=== PATIENT | male | born 1980 | race Caucasian/White ===

== ENCOUNTER 2016-10-05 21:26 | Emergency (ER) | payer BC ==
[2016-10-05 21:33] VITALS: BP 138/81; PULSE 97; RESP 16; TEMP 97.2
[2016-10-05] MEDS ORDERED: SULFAMETHOX-TMP 800-160MG 1 EACH TAB PO STA (21:39)
[2016-10-05] MEDS ORDERED: IBUPROFEN 600 MG TAB PO STA (21:59)
[2016-10-05] MEDS ORDERED: HYDROcodone/APAP 5-325MG 1 EACH TAB PO STA (21:59)
--- NOTE | 2016-10-05 22:01 | ED ---
Skin/Abscess/FB HPI - General Chief complaint: Skin/Abscess/Foreign Body Stated complaint: Arm Pain Time Seen by Provider: 10/05/16 21:34 Source: patient, RN notes reviewed Mode of arrival: ambulatory Limitations: no limitations - History of Present Illness Initial comments: Patient is a 35-year-old male presents to the emergency room for evaluation of left forearm abscess. Patient states a few days ago, he thought he noticed a small spider or insect bite over his forearm. Patient states over the past few days it has significantly increased in size. Patient states he's been applying warm compresses with no relief of symptoms. Patient states he has had lesions like this before that has improved with warm compresses. Patient denies history of known abscesses. Patient denies history of MRSA. Patient denies IV drug use. Patient denies numbness or tingling in his fingers. Patient denies fevers or chills. - Related Data Previous Rx's Medication Instructions Recorded HYDROcodone/APAP 5-325MG [[place] 1 tab PO Q6HR PRN #12 tab 10/05/16 5-325] Ibuprofen [Motrin] 600 mg PO Q6HR PRN #20 tab 10/05/16 Sulfamethox-Tmp 800-160Mg [Bactrim 2 each PO Q12HR #56 tab 10/05/16 Ds] Allergies Allergy/AdvReac Type Severity Reaction Status Date / Time No Known Allergies Allergy Verified 10/05/16 21:33 Review of Systems ROS Statement: Those systems with pertinent positive or pertinent negative responses have been documented in the HPI. ROS Other: All systems not noted in ROS Statement are negative. Past Medical History Past Medical History: No Reported History History of Any Multi-Drug Resistant Organisms: MRSA Date of last positivie culture/infection: 09/09/2013 MDRO Source:: Right Thigh & Groin Past Surgical History: No Surgical Hx Reported Past Psychological History: No Psychological Hx Reported Smoking Status: Never smoker Past Alcohol Use History: Occasional Past Drug Use History: None Reported General Exam - General Exam Comments Initial Comments: Sitting in exam room, no acute distress. Limitations: no limitations General appearance: alert, in no apparent distress Head exam: Present: atraumatic, normocephalic, normal inspection Eye exam: Present: normal appearance ENT exam: Present: normal exam Neck exam: Present: normal inspection Respiratory exam: Present: normal lung sounds bilaterally. Absent: respiratory distress Cardiovascular Exam: Present: regular rate, normal rhythm, normal heart sounds Left Forearm Wrist exam: Present: other (abscess over dorsal mid-distal foremarm with surrounding erythema) Hand Wrist exam: Present: full ROM Vascular: Present: normal capillary refill (Capillary refill less than 2 seconds ), radial pulse (2+), ulnar pulse (2+) Back exam: Present: normal inspection Neurological exam: Present: alert, oriented X3, CN II-XII intact, normal gait Psychiatric exam: Present: normal affect, normal mood Skin exam: Present: warm, dry. Absent: rash Course Vital Signs 10/05/16 21:27 Temperature 97.2 F L Pulse Rate 97 Respiratory 16 Rate Blood Pressure 138/81 O2 Sat by Pulse 98 Oximetry Procedures - Incision & Drainage Consent Obtained: verbal consent Site: other (left forearm) Size (cm): 2 Anesthetic Used: lidocaine 1% Amount (mLs): 5 I&D Cleaning Method: Betadine Scalpel Used: #11 I&D Drainage Obtained: Pus, Blood Patient Tolerated Procedure: well, no complications Medical Decision Making - Medical Decision Making Patient is a 35-year-old male presents to the emergency room for evaluation left forearm abscess. Abscess incised and drained. Patient placed on Bactrim. Advised patient to have area reevaluated by his primary care provider. Discussed with patient the possibility of IV antibiotics if symptoms worsen. Patient states he understands everything that was discussed with him. Return parameters discussed. Disposition Clinical Impression: Abscess of left forearm Disposition: HOME SELF-CARE Condition: Good Instructions: Abscess Incision and Drainage (ED), Abscess (ED) Additional Instructions: Take 2 tablets of Bactrim every 12 hours. Warm compresses. Tylenol or Motrin as needed for pain. [place] as needed for severe pain. Please follow up with primary care provider in 24-48 hours for reevaluation. If any new symptom arises or symptoms worsen, return to ER as soon as possible. Prescriptions: HYDROcodone/APAP 5-325MG [[place] 5-325] 1 tab PO Q6HR PRN #12 tab PRN Reason: Pain Ibuprofen [Motrin] 600 mg PO Q6HR PRN #20 tab PRN Reason: Pain Sulfamethox-Tmp 800-160Mg [Bactrim Ds] 2 each PO Q12HR #56 tab Referrals: Jez Mcgill MD [Primary Care Provider] - 1-2 days Time of Disposition: 21:58
[2016-10-05] MEDS ORDERED: SULFAMETH-TMP DS STARTER PACK 2 TAB BTL PO STA (22:07)
== END 2016-10-05 22:30 | disposition home or self-care (01) ==
LOC: EC 21:26
DX: L02.414 Cutaneous abscess of left upper limb (principal); Z86.14 Personal history of Methicillin resistant Staphylococcus aureus infection
CPT/HCPCS: 10060; 99283

== ENCOUNTER 2020-01-23 12:56 | Emergency (ER) | payer BC ==
[2020-01-23 13:03] VITALS: PULSE 66; TEMP 97.7
[2020-01-23] MEDS ORDERED: SODIUM CHLORIDE 0.9% 1,000 ML IV STA (13:26)
[2020-01-23] MEDS ORDERED: KETOROLAC 15 MG/ML 1 ML VIAL IVP STA (13:26)
--- NOTE | 2020-01-23 13:37 | ED ---
Abdominal Pain HPI - General Chief Complaint: Abdominal Pain Stated Complaint: lt sided abd pain Time Seen by Provider: 01/23/20 13:15 Source: patient Mode of arrival: ambulatory Limitations: no limitations - History of Present Illness Initial Comments: Patient is a 3-year-old male presenting to emergency Department with a chief complaint of abdominal pain. Patient reports he developed left-sided abdominal pain several days ago with gradual increase in severity. Patient reports the pain is sharp and colicky nature. Patient states he has been taking [id number] analgesics with minimal improvement in symptoms. He denies previous history of kidney stones. Denies hematuria, hematochezia or melena. Denies any nausea or vomiting. Denies dysuria, increased urgency or frequency. Denies previous abdominal surgeries. - Related Data Previous Rx's Medication Instructions Recorded HYDROcodone/APAP 5-325MG [[place] 1 tab PO Q6HR PRN #12 tab 10/05/16 5-325] RX: Ibuprofen [Motrin] 600 mg PO Q6HR PRN #20 tab 10/05/16 Sulfamethox-Tmp 800-160Mg [Bactrim 2 each PO Q12HR #56 tab 10/05/16 Ds] Ondansetron Odt [Zofran Odt] 4 mg PO Q8HR PRN #20 tab 01/23/20 Tamsulosin [Flomax] 0.4 mg PO DAILY #7 cap 01/23/20 Allergies Allergy/AdvReac Type Severity Reaction Status Date / Time Sulfa (Sulfonamide Allergy Anaphylaxis Verified 01/23/20 13:03 Antibiotics) Review of Systems ROS Statement: Those systems with pertinent positive or pertinent negative responses have been documented in the HPI. ROS Other: All systems not noted in ROS Statement are negative. Past Medical History Past Medical History: No Reported History History of Any Multi-Drug Resistant Organisms: MRSA Date of last positivie culture/infection: 09/09/2013 MDRO Source:: Right Thigh & Groin Past Surgical History: No Surgical Hx Reported Past Psychological History: No Psychological Hx Reported Past Alcohol Use History: Occasional Past Drug Use History: None Reported General Exam Limitations: no limitations General appearance: alert, in no apparent distress Head exam: Present: atraumatic, normocephalic, normal inspection Eye exam: Present: normal appearance, PERRL, EOMI Pupils: Present: normal accommodation ENT exam: Present: normal exam, normal oropharynx, mucous membranes moist Neck exam: Present: normal inspection, full ROM. Absent: tenderness Respiratory exam: Present: normal lung sounds bilaterally. Absent: respiratory distress, wheezes, rales Cardiovascular Exam: Present: regular rate, normal rhythm, normal heart sounds GI/Abdominal exam: Present: soft. Absent: distended, tenderness, guarding Extremities exam: Present: normal inspection, full ROM, normal capillary refill Back exam: Present: normal inspection, full ROM, CVA tenderness (L). Absent: tenderness, CVA tenderness (R) Neurological exam: Present: alert, oriented X3, CN II-XII intact, normal gait Psychiatric exam: Present: normal affect, normal mood Skin exam: Present: warm, dry, intact, normal color Course Vital Signs 01/23/20 01/23/20 12:59 14:59 Temperature 97.7 F Pulse Rate 66 66 Respiratory 80 H 18 Rate Blood Pressure 155/84 120/78 O2 Sat by Pulse 100 100 Oximetry Medical Decision Making - Medical Decision Making patient is a 39-year-old male presenting to emergency Department with chief complaint of abdominal pain. On physical examination patient has left CVA tenderness and left flank pain. CBC CMP is unremarkable. UA reveals a 7 mm obstructing stone in the left UVJ causing left-sided hydronephrosis. Patient given analgesia, and IV fluids in the ED. He will be discharged with Flomax, Zofran and Tylenol 3 starter pack. On reevaluation, patient reports improvement of symptoms and states the pain is manageable now. He was advised to follow-up with urologist. Strict return parameters were thoroughly discussed the patient was understanding and agreeable. Case discussed with physician. - Lab Data Result diagrams: 01/23/20 13:40 01/23/20 13:40 Lab Results 01/23/20 01/23/20 01/23/20 Range/Units 13:40 13:40 13:40 WBC 10.1 (3.8-10.6) k/uL RBC 5.23 (4.30-5.90) m/uL Hgb 15.4 (13.0-17.5) gm/dL Hct 46.4 (39.0-53.0) % MCV 88.7 (80.0-100.0) fL MCH 29.4 (25.0-35.0) pg MCHC 33.1 (31.0-37.0) g/dL RDW 13.0 (11.5-15.5) % Plt Count 273 (150-450) k/uL Neutrophils % 77 % Lymphocytes % 16 % Monocytes % 5 % Eosinophils % 1 % Basophils % 1 % Neutrophils # 7.8 H (1.3-7.7) k/uL Lymphocytes # 1.6 (1.0-4.8) k/uL Monocytes # 0.5 (0-1.0) k/uL Eosinophils # 0.1 (0-0.7) k/uL Basophils # 0.1 (0-0.2) k/uL Sodium 138 (137-145) mmol/L Potassium 4.1 (3.5-5.1) mmol/L Chloride 104 (98-107) mmol/L Carbon Dioxide 26 (22-30) mmol/L Anion Gap 8 mmol/L BUN 18 (9-20) mg/dL Creatinine 1.07 (0.66-1.25) mg/dL Est GFR (CKD-EPI)AfAm >90 (>60 ml/min/1.73 sqM) Est GFR (CKD-EPI)NonAf 87 (>60 ml/min/1.73 sqM) Glucose 114 H (74-99) mg/dL Calcium 9.9 (8.4-10.2) mg/dL Total Bilirubin 1.3 (0.2-1.3) mg/dL AST 42 (17-59) U/L ALT 33 (4-49) U/L Alkaline Phosphatase 73 (38-126) U/L Total Protein 7.8 (6.3-8.2) g/dL Albumin 4.7 (3.5-5.0) g/dL Lipase 224 (23-300) U/L Urine Color Yellow Urine Appearance Cloudy (Clear) Urine pH 6.0 (5.0-8.0) Ur Specific [place] 1.025 (1.001-1.035) Urine Protein Trace H (Negative) Urine Glucose (UA) Negative (Negative) Urine Ketones 2+ H (Negative) Urine Blood Large H (Negative) Urine Nitrite Negative (Negative) Urine Bilirubin Negative (Negative) Urine Urobilinogen 2.0 (<2.0) mg/dL Ur Leukocyte Esterase Small H (Negative) Urine RBC 104 H (0-5) /hpf Urine WBC 9 H (0-5) /hpf Ur Squamous Epith Cells <1 (0-4) /hpf Hyaline Casts 1 (0-2) /lpf Urine Mucus Rare H (None) /hpf Disposition Clinical Impression: Hydronephrosis concurrent with and due to calculi of kidney and ureter, Renal stone Disposition: HOME SELF-CARE Condition: Stable Instructions (If sedation given, give patient instructions): Kidney Stones (ED) Additional Instructions: Take prescribed medication as directed. Follow-up with urologist. Drink plenty of fluids. Return to emergency department if symptoms worsen. Prescriptions: Tamsulosin [Flomax] 0.4 mg PO DAILY #7 cap Ondansetron Odt [Zofran Odt] 4 mg PO Q8HR PRN #20 tab PRN Reason: Nausea Is patient prescribed a controlled substance at d/c from ED?: No Referrals: None,Stated [Primary Care Provider] - 1-2 days Jesus Lebron MD [STAFF PHYSICIAN] - 1-2 days Time of Disposition: 14:40
[2020-01-23 14:00] LABS: Basophils # (A) 0.1 k/uL (0-0.2); Basophils % (A) 1 %; Eosinophils # (A) 0.1 k/uL (0-0.7); Eosinophils % (A) 1 %; HCT 46.4 % (39.0-53.0); HGB 15.4 gm/dL (13.0-17.5); Lymphocytes # (A) 1.6 k/uL (1.0-4.8); Lymphocytes % (A) 16 %; MCH 29.4 pg (25.0-35.0); MCHC 33.1 g/dL (31.0-37.0); MCV 88.7 fL (80.0-100.0); Mean Platelet Volume 6.7; Monocytes # (A) 0.5 k/uL (0-1.0); Monocytes % (A) 5 %; Neutrophils # (A) 7.8 k/uL (1.3-7.7); Neutrophils % (A) 77 %; Platelet Count 273 k/uL (150-450); RBC 5.23 m/uL (4.30-5.90); WBC 10.1 k/uL (3.8-10.6)
[2020-01-23 14:07] LABS: Appearance,Urine Cloudy (Clear); Bilirubin,Urine Negative (Negative); Blood,Urine Large (Negative); Color,Urine Yellow; Glucose,Urine (UA) Negative (Negative); Hyaline Casts,Urine 1 /lpf (0-2); Ketones,Urine 2+ (Negative); Leukocyte Esterase,Urine Small (Negative); Mucus,Urine Rare /hpf; Nitrite,Urine Negative (Negative); Protein,Urine Trace (Negative); RBC,Urine 104 /hpf (0-5); Specific Gravity,Urine 1.025 (1.001-1.035); Squamous Epithelial Cell,Urine <1 /hpf (0-4); WBC,Urine 9 /hpf (0-5)
[2020-01-23 14:08] LABS: ALT 33 U/L (4-49); AST 42 U/L (17-59); African American GFR (CKD) >90 (>60 ml/min/1.73 sqM); Albumin 4.7 g/dL (3.5-5.0); Alkaline Phosphatase 73 U/L (38-126); Anion Gap 8 mmol/L; Blood Urea Nitrogen 18 mg/dL (9-20); Calcium 9.9 mg/dL (8.4-10.2); Carbon Dioxide 26 mmol/L (22-30); Chloride 104 mmol/L (98-107); Glucose 114 mg/dL (74-99); Non-African American GFR(CKD) 87 (>60 ml/min/1.73 sqM); Potassium 4.1 mmol/L (3.5-5.1); Sodium 138 mmol/L (137-145); Total Bilirubin 1.3 mg/dL (0.2-1.3); Total Protein 7.8 g/dL (6.3-8.2)
--- NOTE | 2020-01-23 14:33 | CT ---
EXAMINATION TYPE: CT abdomen pelvis w con DATE OF EXAM: 01/23/2020 COMPARISON: None HISTORY: Left sided flank pain with hematuria. CT DLP: 1223.7 mGycm Automated exposure control for dose reduction was used. CONTRAST: Performed with IV Contrast, patient injected with 100 mL of Isovue 300. Lung bases are clear. There is no pleural effusion. Heart size is normal. There is no pericardial eff usion. Liver spleen pancreas stomach gallbladder appear normal. Bile ducts are not dilated. There is no adrenal mass. Kidneys have normal size. There is delayed left side pyelogram. There is le ft-sided hydronephrosis with 7 mm calculus at the ureteropelvic junction. There is 2 cm cortical cyst anterior right kidney. There is 8mm calculus lower pole right kidney. There is 3 mm calculus lower p ole right kidney. There is 1 mm calculus upper pole left kidney. There is no retroperitoneal adenopathy. Ureters are not dilated. Appendix is posterior and appears no rmal. There is no evidence of a pelvic mass. Bladder distends smoothly. There are a few phleboliths i n the pelvis. There is small left side prostate calcifications. There is no mesenteric edema. There is no ascites or free air. There is no bowel obstruction. Lumbar vertebra have normal alignment. Disc spaces are fairly normal. Posterior elements are intact. Bony pelvis is intact. The hip joints are intact. IMPRESSION: Obstructing calculus at the left ureteropelvic Junction with left-sided hydronephrosis. Multiple bila teral renal calculi.
[2020-01-23] MEDS ORDERED: ACET/COD 300 MG/30 MG STARTER PACK 6 TAB BTL PO STA (14:36)
[2020-01-23] MEDS ORDERED: TAMSULOSIN 0.4 MG CAP.ER.24H PO STA (14:36)
[2020-01-23 15:03] VITALS: BP 120/78; RESP 18
== END 2020-01-23 14:59 | disposition home or self-care (01) ==
LOC: EC 12:56
DX: N13.2 Hydronephrosis with renal and ureteral calculous obstruction (principal); Z88.2 Allergy status to sulfonamides; Z86.14 Personal history of Methicillin resistant Staphylococcus aureus infection
CPT/HCPCS: 36415; 80053; 83690; 85025; 81001; 74177; 99284; 96374; 96361; J1885; Q9967

== ENCOUNTER → 2020-02-14 | Outpatient (CLI) | payer BC ==
--- NOTE | 2020-02-14 13:54 | XR ---
EXAMINATION TYPE: XR KUB DATE OF EXAM: 02/14/2020 HISTORY: Pain Comparison: None.Single KUB is submitted for interpretation. Findings: Right renal calculi: 6.25mm calculus lower pole right kidney Right ureteral calculi: None Visualized. Left renal calculi: None Visualized. Left ureteral calculi: None Visualized. Pelvic calcifications: None Visualized. Bowel gas pattern is unremarkable. No free air. No mass effects. IMPRESSION: 1. 6.25mm calculus lower pole right kidney
== END | disposition home or self-care (01) ==
LOC: RADXRMAIN 13:30
PROVIDERS: ATTEND Urology
DX: N20.0 Calculus of kidney (principal)
CPT/HCPCS: 74018

== ENCOUNTER 2020-03-16 08:16 | Emergency (ER) | payer BC ==
[2020-03-16 08:21] VITALS: RESP 18; TEMP 98.7
[2020-03-16] MEDS ORDERED: KETOROLAC 15 MG/ML 1 ML VIAL IVP STA (08:37)
[2020-03-16] MEDS ORDERED: SODIUM CHLORIDE 0.9% 500 ML 500 ML IV ONE (08:37)
[2020-03-16] MEDS ORDERED: SODIUM CHLORIDE 0.9% 1,000 ML IV SCH (08:45)
--- NOTE | 2020-03-16 08:46 | ED ---
Male Urogenital HPI - General Chief complaint: Urogenital Stated complaint: Kidney stone Time Seen by Provider: 03/16/20 08:22 Source: patient Mode of arrival: ambulatory Limitations: no limitations - History of Present Illness Initial comments: 39yo male with history of kidney stone presenting for right sided flank pain. patient states that he was in the ER a month ago or so for left flank pain and diagnosed with both right sided and left sided kidney stones. he states the left passed and he received lithotripsy friday for the right side, patient states he was no symptomatic. patietn states that now he is in severe pain in the right side, he thinks there is a large chunk stuck. He states he has had nause and vomiting associated with the pain. pt states that the pain began Friday and has continued to get worse. Denies fevers, chills. Admits to cold sweats prior to vomiting. Patient denies abdominal pain. Patient denies blood in vomiting. rem aining ROS (-). patient appears nontoxic but uncomfortable on arrival. - Related Data Previous Rx's Medication Instructions Recorded HYDROcodone/APAP 5-325MG [[place] 1 tab PO Q6HR PRN 3 Days #12 tab 03/16/20 5-325] Ketorolac [Toradol] 10 mg PO Q8HR PRN 3 Days #15 tab 03/16/20 Ondansetron Odt [Zofran Odt] 4 mg PO Q8HR PRN 7 Days #21 tab 03/16/20 Tamsulosin [Flomax] 0.4 mg PO DAILY 5 Days #5 cap 03/16/20 Allergies Allergy/AdvReac Type Severity Reaction Status Date / Time Sulfa (Sulfonamide Allergy Anaphylaxis Verified 03/16/20 08:59 Antibiotics) Review of Systems ROS Statement: Those systems with pertinent positive or pertinent negative responses have been documented in the HPI. ROS Other: All systems not noted in ROS Statement are negative. Past Medical History Past Medical History: No Reported History Additional Past Medical History / Comment(s): Kidney stone History of Any Multi-Drug Resistant Organisms: MRSA Date of last positivie culture/infection: 09/09/2013 MDRO Source:: Right Thigh & Groin Past Surgical History: No Surgical Hx Reported Past Psychological History: No Psychological Hx Reported Smoking Status: Never smoker Past Alcohol Use History: None Reported Past Drug Use History: None Reported General Exam - General Exam Comments Initial Comments: General: The patient is awake and alert, in no distress Eye: +3 mm pupils are equal, round and reactive to light, extra-ocular movements are intact. No nystagmus. There is normal conjunctiva bilaterally. No signs of icterus. Ears, nose, mouth and throat: There are moist mucous membranes and no oral lesions. Neck: The neck is supple, there is no tenderness or JVD. Cardiovascular: There is a regular rate and rhythm. No murmur, rub or gallop is appreciated. Respiratory: Lungs are clear to auscultation, respirations are non-labored, breath sounds are equal. No wheezes, stridor, rales, or rhonchi. Gastrointestinal: Soft, non-distended, non-tender abdomen without masses or organomegaly noted. There is no rebound or guarding present. Musculoskeletal: Normal ROM, no tenderness. Strength 5/5. Sensation intact. Radial pulses equal bilaterally 2+. Neurological: A&O x 3. CN II-XII intact grossly, There are no obvious motor or sensory deficits. Coordination appears grossly intact. Speech is normal. Skin: Skin is warm and dry and no rashes or lesions are noted. Psychiatric: Cooperative, appropriate mood & affect, normal judgment. Limitations: no limitations Course Vital Signs 03/16/20 08:17 Temperature 98.7 F Pulse Rate 81 Respiratory 18 Rate Blood Pressure 154/95 O2 Sat by Pulse 97 Oximetry Medical Decision Making - Medical Decision Making Lab increased creatinine, CT revealed hydronephrosis and 2 small stones at 4 mm that appear to be passing. Urology consulted. recommended discharge with urology f/u, toradol and norco prescription. patient agreeable to care plan and discharge. - Lab Data Result diagrams: 03/16/20 08:43 03/16/20 08:43 Lab Results 03/16/20 03/16/20 03/16/20 Range/Units 08:43 08:43 08:43 WBC 17.6 H (3.8-10.6) k/uL RBC 5.14 (4.30-5.90) m/uL Hgb 15.3 (13.0-17.5) gm/dL Hct 43.3 (39.0-53.0) % MCV 84.3 (80.0-100.0) fL MCH 29.7 (25.0-35.0) pg MCHC 35.3 (31.0-37.0) g/dL RDW 13.1 (11.5-15.5) % Plt Count 333 (150-450) k/uL MPV 6.8 Neutrophils % 86 % Lymphocytes % 7 % Monocytes % 6 % Eosinophils % 0 % Basophils % 0 % Neutrophils # 15.2 H (1.3-7.7) k/uL Lymphocytes # 1.2 (1.0-4.8) k/uL Monocytes # 1.0 (0-1.0) k/uL Eosinophils # 0.0 (0-0.7) k/uL Basophils # 0.1 (0-0.2) k/uL Sodium 135 L (137-145) mmol/L Potassium 4.3 (3.5-5.1) mmol/L Chloride 105 (98-107) mmol/L Carbon Dioxide 22 (22-30) mmol/L Anion Gap 8 mmol/L BUN 19 (9-20) mg/dL Creatinine 1.59 H (0.66-1.25) mg/dL Est GFR (CKD-EPI)AfAm 62 (>60 ml/min/1.73 sqM) Est GFR (CKD-EPI)NonAf 54 (>60 ml/min/1.73 sqM) Glucose 137 H (74-99) mg/dL Calcium 10.2 (8.4-10.2) mg/dL Total Bilirubin 1.2 (0.2-1.3) mg/dL AST 35 (17-59) U/L ALT 23 (4-49) U/L Alkaline Phosphatase 67 (38-126) U/L Total Protein 7.9 (6.3-8.2) g/dL Albumin 4.6 (3.5-5.0) g/dL Urine Color Yellow Urine Appearance Clear (Clear) Urine pH 6.0 (5.0-8.0) Ur Specific [place] 1.028 (1.001-1.035) Urine Protein 1+ H (Negative) Urine Glucose (UA) Negative (Negative) Urine Ketones 2+ H (Negative) Urine Blood Moderate H (Negative) Urine Nitrite Negative (Negative) Urine Bilirubin Negative (Negative) Urine Urobilinogen <2.0 (<2.0) mg/dL Ur Leukocyte Esterase Negative (Negative) Urine RBC 8 H (0-5) /hpf Urine WBC 2 (0-5) /hpf Ur Squamous Epith Cells <1 (0-4) /hpf Urine Mucus Rare H (None) /hpf Disposition Clinical Impression: Kidney stones, Right flank pain Disposition: HOME SELF-CARE Condition: Good Instructions (If sedation given, give patient instructions): Kidney Stones (ED) Additional Instructions: Please use medication as discussed. Please follow-up with urology in next 2 days. Please return to emergency room if the symptoms increase or worsen or for any other concerns. Is patient prescribed a controlled substance at d/c from ED?: No Referrals: None,Stated [Primary Care Provider] - 1-2 days Time of Disposition: 10:08
[2020-03-16 09:04] LABS: Basophils # (A) 0.1 k/uL (0-0.2); Basophils % (A) 0 %; Eosinophils % (A) 0 %; HCT 43.3 % (39.0-53.0); HGB 15.3 gm/dL (13.0-17.5); Lymphocytes # (A) 1.2 k/uL (1.0-4.8); Lymphocytes % (A) 7 %; MCH 29.7 pg (25.0-35.0); MCHC 35.3 g/dL (31.0-37.0); MCV 84.3 fL (80.0-100.0); Mean Platelet Volume 6.8; Monocytes % (A) 6 %; Neutrophils # (A) 15.2 k/uL (1.3-7.7); Neutrophils % (A) 86 %; Platelet Count 333 k/uL (150-450); RBC 5.14 m/uL (4.30-5.90); RDW 13.1 % (11.5-15.5); WBC 17.6 k/uL (3.8-10.6)
[2020-03-16 09:16] LABS: Albumin 4.6 g/dL (3.5-5.0); Calcium 10.2 mg/dL (8.4-10.2); Potassium 4.3 mmol/L (3.5-5.1); Total Bilirubin 1.2 mg/dL (0.2-1.3); Total Protein 7.9 g/dL (6.3-8.2)
[2020-03-16 09:21] LABS: Appearance,Urine Clear (Clear); Bilirubin,Urine Negative (Negative); Blood,Urine Moderate (Negative); Color,Urine Yellow; Glucose,Urine (UA) Negative (Negative); Ketones,Urine 2+ (Negative); Leukocyte Esterase,Urine Negative (Negative); Mucus,Urine Rare /hpf; Nitrite,Urine Negative (Negative); Protein,Urine 1+ (Negative); RBC,Urine 8 /hpf (0-5); Specific Gravity,Urine 1.028 (1.001-1.035); Squamous Epithelial Cell,Urine <1 /hpf (0-4); Urobilinogen,Urine <2.0 mg/dL (<2.0); WBC,Urine 2 /hpf (0-5)
--- NOTE | 2020-03-16 09:32 | CT ---
EXAMINATION TYPE: CT abdomen pelvis wo con DATE OF EXAM: 03/16/2020 HISTORY: Right sided flank pain CT DLP: 850.3 mGycm. Automated Exposure Control for Dose Reduction was Utilized. TECHNIQUE: CT scan of the abdomen and pelvis is performed without oral or IV contrast. COMPARISON: CT abdomen and pelvis January 23, 2020 FINDINGS: Within the limitations of a non-contrast study, the following observations are made. LUNG BASES: No significant abnormality is appreciated. LIVER/GB: Liver is heterogeneously hypodense relative to spleen consistent with mild diffuse fatty in filtration. Subtle dependent density in gallbladder could reflect small stones and/or sludge. No surr ounding inflammatory change noted. PANCREAS: No significant abnormality is seen. SPLEEN: No significant abnormality is seen. ADRENALS: No significant abnormality is seen. KIDNEYS: Occasional punctate 1 to 2 mm nonobstructing calculus bilaterally may be present for referen ce made to lower pole right kidney coronal image 70 and upper pole level left kidney coronal image 71 . A few larger calculi lower pole right kidney are redemonstrated. For reference 6 mm calculus anteri shree lower pole right kidney measures 74 again seen. Interval resolution of left-sided hydronephrosis . Mild to moderate right-sided hydronephrosis and hydroureter on current study. 2 fragmented right re nal calculi from lithotripsy seen axial image 147, 1 likely pass into bladder, one may have passed in to bladder or is close into passing into bladder at distal UVJ. Scattered pelvic phleboliths. BOWEL: Mild to moderate wall thickening left colon is nonspecific could be product of poor distention . No suspicious small or large bowel dilatation. GENITAL ORGANS: Some central calcifications in nonenlarged prostate. LYMPH NODES: No greater than 1cm abdominal or pelvic lymph nodes are appreciated. OSSEOUS STRUCTURES: No significant abnormality is seen. OTHER: No significant additional abnormality is seen. IMPRESSION: New [id number] right-sided hydronephrosis due to 2 4 mm right-sided calculi which h ave passed distally. One is thought to have passed into bladder. Second is at distal UVJ or has just passed into bladder.
[2020-03-16] MEDS ORDERED: SODIUM CHLORIDE 0.9% 1,000 ML IV ONE (09:43)
[2020-03-16] MEDS: HYDROmorphone 0.5 MG/0.5 ML SYRINGE IVP STA ×2 (10:16→10:20)
[2020-03-16 10:33] VITALS: BP 146/90; PULSE 68
== END 2020-03-16 10:31 | disposition home or self-care (01) ==
LOC: EC 08:16
DX: N20.0 Calculus of kidney (principal); Z88.2 Allergy status to sulfonamides
CPT/HCPCS: 36415; 74176; 80053; 81001; 85025; 96361; 96374; 99284

== ENCOUNTER → 2020-03-20 | Outpatient (CLI) | payer BC ==
--- NOTE | 2020-03-20 13:22 | XR ---
EXAMINATION TYPE: XR KUB DATE OF EXAM: 03/20/2020 HISTORY: Pain Comparison: 02/14/2020 Single KUB is submitted for interpretation. Findings: Right renal calculi: Previously noted 7 mm calculus overlying the lower pole of the right kidney now measures 2 mm. Right ureteral calculi: None Visualized. Left renal calculi: None Visualized. Left ureteral calculi: None Visualized. Pelvic calcifications: None Visualized. Bowel gas pattern is unremarkable. No free air. No mass effects. IMPRESSION: 1. Previously noted 7 mm calculus overlying the lower pole of the right kidney now measures 2 mm.
== END | disposition home or self-care (01) ==
LOC: RADXRMAIN 12:45
PROVIDERS: ATTEND Urology
DX: N20.0 Calculus of kidney (principal); Z98.890 Other specified postprocedural states
CPT/HCPCS: 74018

== ENCOUNTER → 2020-07-03 | Outpatient (CLI) | payer BC ==
--- NOTE | 2020-07-03 18:11 | XR ---
EXAMINATION TYPE: XR KUB DATE OF EXAM: 07/03/2020 Comparison: 03/20/2020 Clinical History: 39-year-old male N20.0 Findings: Supine imaging is limited for assessment of free air. No significant stool burden. No dilated small b owel loops. Phleboliths redemonstrated within the pelvis. The previously seen right renal calculus is not clearly identified on the present exam. Impression: The previously seen right renal calculus is not clearly identified on the present exam. Stable pelvic phleboliths.
== END | disposition home or self-care (01) ==
LOC: RADXRMAIN 15:28
PROVIDERS: ATTEND Urology
DX: I87.8 Other specified disorders of veins (principal)
CPT/HCPCS: 74018